=== PATIENT | female | born 1945 | race Caucasian/White ===

== ENCOUNTER → 2024-12-22 14:00 | Outpatient (CLI) | payer MEDICARE, OTHER, SELFPAY ==
[2024-12-22 21:09] LABS: Influenza A - CEPHEID Flu A NEGATIVE (NEGATIVE); Influenza B - CEPHEID Flu B NEGATIVE (NEGATIVE); Respiratory Syncytial Virus Negative (Negative)
[2024-12-22 21:11] LABS: COVID-19 CEPHEID 4-PLEX PCR Negative (Negative)
== END ==
PROVIDERS: PCP Family Medicine; Visit Provider Physician Assistant
DX: R05.1 Acute cough (principal)
CPT/HCPCS: 0241U

== ENCOUNTER → 2025-01-16 12:21 | Outpatient (CLI) | payer MEDICARE, OTHER, SELFPAY ==
--- NOTE | 2025-01-16 12:23 | DI.ECHO.S_ITS ---
[facility] : : [address] : : [place] : : [id number] : : Phone: [phone] Echocardiogram Report + + :Name: MAGALY MARLOW Study Date: 01/16/2025 Height: 65 in : :[facility] ReadingLocation: Weight: 201 lb : : Gender: Female BSA: 2.0 m2 : :: 1945 Age: 79 yrs BP: 142/86 mmHg: :Reason For Study: Cardiomyopathy : :Ordering Physician: NAZ, : :SILVINA Performed By: Conchita Post : :Referring: SILVINA HER : + + Interpretation Summary 1) Normal left ventricular thickness and size with low normal systolic function (EF 50-55%). There is a significant dyssynchronous contraction pattern, consistent with a conduction abnormality. 2) Normal right ventricular size and function. 3) No significant valvular abnormalities. 4) No prior Echo available for comparison. Procedure: A two-dimensional transthoracic echocardiogram with color flow and Doppler was performed. The study quality was technically adequate. There is no prior echocardiogram noted for this patient. The patient was in sinus rhythm with heart rates between 56-71 bpm during the exam. Left Ventricle: The left ventricle is normal in size and wall thickness. A false chord is noted (normal variant). The ejection fraction is estimated to be 50-55%. There is a significant dyssynchronous contraction pattern, consistent with a conduction abnormality. Diastolic function could not be accurately assessed due to contradictory data. Right Ventricle: The right ventricle is normal in size and function. Atria: Both atria are normal in size. There is no Doppler evidence for an interatrial shunt. Mitral Valve: There is mild mitral annular calcification. The mitral valve leaflets are mildly calcified. There is no mitral valve stenosis. There is trace mitral regurgitation. Aortic Valve: The aortic valve is trileaflet. The aortic valve opens well. The aortic valve is slightly calcified. There is no aortic valve stenosis. No aortic regurgitation is present. Tricuspid Valve: The tricuspid valve leaflets are thin and pliable. There is a trace or physiologic amount of tricuspid regurgitation. The right ventricular systolic pressure is estimated to be at least 21 mmHg based on an estimated right atrial pressure of 3 mm Hg. Pulmonic Valve: The pulmonic valve is not well seen, but is grossly normal. There is a trace or physiologic amount of pulmonic regurgitation. Great Vessels: The aortic root is normal size. Moderate atherosclerotic plaque(s) in the aortic arch. The ascending aorta is normal in size. The aortic arch is normal in size. The pulmonary artery is normal size. The IVC is of normal diameter and collapses greater than 50% with a sniff. This suggests a low right atrial pressure of 3 mm Hg. MMode/2D Measurements & Calculations LVIDd: 5.3 cm LVOT diam: 2.1 cm LVIDs: 3.9 cm Ao root diam: 3.4 cm FS: 25.9 % asc Aorta Diam: 3.4 cm EPSS: 1.7 cm Ao Arch Diam (Prox Trans): 2.0 cm IVSd: 0.69 cm LVPWd: 0.96 cm LV gore. diameter/BSA (cm/m^2): 2.7 LV sys. diameter/BSA (cm/m^2): 2.0 LA A2 area: 19.8 cm2 RA long axis: 5.1 cm LA A4 area: 15.7 cm2 RA area: 15.5 cm2 LA length (vol): 4.7 cm RA vol: 39.7 ml LA vol: 55.4 ml RA : 20.0 ml/m2 LA vol index: 27.9 ml/m2 IVC diam: 1.3 cm TAPSE: 2.2 cm Doppler Measurements & Calculations Ao V2 max: 125.6 cm/sec LVOT Max Devante: 79.4 cm/sec Ao V2 mean: 88.2 cm/sec LV V1 max P.5 mmHg Ao max P.3 mmHg LV V1 VTI: 18.8 cm Ao mean P.4 mmHg VITOR(I,D): 2.3 cm2 Ao V2 VTI: 29.5 cm VITOR(V,D): 2.2 cm2 sev ratio: 0.64 VITOR indexed to BSA (cm^2/m^2): 1.1 MV E max devante: 61.0 cm/sec TR max devante: 212.8 cm/sec MV A max devante: 83.5 cm/sec TR max P.1 mmHg MV E/A: 0.73 PA V2 max: 70.4 cm/sec Med Peak E' Devante: 3.6 cm/sec PA V2 mean: 46.4 cm/sec E/E' med: 17.2 PA mean P.96 mmHg Lat Peak E' Devante: 4.1 cm/sec PA pr(Accel): 39.6 mmHg E/E' lat: 14.9 E/e' average: 16.0 MV dec time: 0.33 sec MVA(VTI): 2.2 cm2 MV V2 mean: 56.2 cm/sec SV(LVOT): 66.6 ml MV mean P.4 mmHg MV V2 VTI: 30.0 cm Reading Physician:05:49 PM
== END ==
PROVIDERS: PCP Family Medicine; Referring Provider Internal Medicine Cardiovascular Disease; Visit Provider Internal Medicine Cardiovascular Disease
DX: I34.81 Nonrheumatic mitral (valve) annulus calcification (principal); I70.0 Atherosclerosis of aorta; I42.9 Cardiomyopathy, unspecified
CPT/HCPCS: 93306

== ENCOUNTER → 2025-03-08 11:44 | Outpatient (CLI) | payer MEDICARE, OTHER, SELFPAY ==
[2025-03-08 12:45] LABS: Add Manual Diff / Slide Review NO; Basophils Absolute Auto 100 /uL (0-100); Basophils Percent Auto 0.9 % (0-2); Eosinophils Absolute Auto 500 /uL (0-450); Eosinophils Percent Auto 5.4 % (2-4); Hematocrit 42.1 % (36-46); Hemoglobin 14.3 g/dL (12.0-16.0); Lymphocytes Absolute Auto 3200 /uL (1100-4500); Lymphocytes Percent Auto 37.3 % (25-40); Mean Corpuscular HGB Conc 34.1 % (30-36); Mean Corpuscular Hemoglobin 32.7 PG (26-34); Mean Corpuscular Volume 95.9 fL (80-100); Monocytes Absolute Auto 600 /uL (0-900); Monocytes Percent Auto 6.6 % (3-14); Neutrophils Absolute Auto 4300 /uL (1500-7000); Neutrophils Percent Auto 49.8 % (50-75); Platelet Count 345 X10^3/uL (150-400); Red Blood Cell Count 4.39 X10^6/uL (4.0-5.2); Red Cell Distribution Width 14.8 % (11.6-14.8); White Blood Cell Count 8.6 X10^3/uL (4.5-11.0)
[2025-03-08 13:12] LABS: Alanine Aminotransferase 15 IU/L (<35); Albumin 4.5 g/dL (3.5-5.0); Alkaline Phosphatase 65 U/L (38-126); Aspartate Aminotransferase 22 IU/L (14-36); BUN Creatinine Ratio 24.2 (6-22); Bilirubin Total 0.5 mg/dL (0.2-1.3); Blood Urea Nitrogen 15 mg/dL (7-17); Calcium 9.7 mg/dL (8.4-10.2); Carbon Dioxide 27 mmol/L (22-32); Chloride 96 mmol/L (98-107); Cholesterol 213 mg/dL (140-199); Estimated Glomerular Filt Rate > 60 mL/min (>60); Globulin 2.3 g/dL (1.7-4.1); Glucose 96 mg/dL (70-99); HDL Cholesterol 68 mg/dL (40-60); HEMOLYSIS < 15 (0-50); LDL Cholesterol Calculated 120 mg/dL (<100); Potassium 4.6 mmol/L (3.4-5.1); Sodium 130 mmol/L (137-145); Total Protein 6.8 g/dL (6.3-8.2); Triglycerides 126 mg/dL (35-150)
== END ==
PROVIDERS: PCP Family Medicine; Referring Provider Family Medicine; Visit Provider Family Medicine
DX: I10 Essential (primary) hypertension (principal); I42.9 Cardiomyopathy, unspecified; E78.5 Hyperlipidemia, unspecified
CPT/HCPCS: 36415; 80053; 80061; 85025

== ENCOUNTER → 2025-03-28 09:13 | Outpatient (CLI) | payer MEDICARE, OTHER, SELFPAY ==
[2025-03-28 10:49] LABS: Cortisol AM (Before 10AM) 10.7 ug/dL (4.46-22.7)
[2025-03-29 13:14] LABS: Osmolality Urine 420 mOsmol/kg (.)
[2025-03-29 13:14] LABS: Osmolality, Serum 282 mOsmol/kg (280-301)
== END ==
PROVIDERS: PCP Family Medicine; Referring Provider Family Medicine; Visit Provider Family Medicine
DX: E27.49 Other adrenocortical insufficiency (principal); E87.1 Hypo-osmolality and hyponatremia
CPT/HCPCS: 36415; 82533; 83930; 83935

== ENCOUNTER → 2025-06-23 10:34 | Outpatient (CLI) | payer MEDICARE, OTHER, SELFPAY ==
[2025-06-23 11:49] LABS: Free T3, Triiodothyronine Free 4.51 pg/mL (2.77-5.27); Free T4, Direct Thyroxine 1.07 ng/dL (0.78-2.19)
[2025-06-23 12:03] LABS: Thyroid Stimulating Hormone 1.98 uIU/mL (0.47-4.68)
== END ==
PROVIDERS: PCP Family Medicine; Referring Provider Family Medicine; Visit Provider Family Medicine
DX: E04.9 Nontoxic goiter, unspecified (principal); Z86.39 Personal history of other endocrine, nutritional and metabolic disease; Z83.49 Family history of other endocrine, nutritional and metabolic diseases
CPT/HCPCS: 36415; 84439; 84443; 84481

== ENCOUNTER → 2025-07-05 | Outpatient (CLI) | payer MEDICARE, OTHER, SELFPAY ==
--- NOTE | 2025-07-05 11:45 | DI.US.S_ITS ---
PROCEDURE: US THYROID INDICATIONS: F/U CHEST CT TECHNIQUE: Real-time scanning was performed of the thyroid gland, with image documentation. COMPARISON: None. FINDINGS: Thyroid: Right lobe measures 5.5 x 2.1 x 1.3 cm. Left lobe measures 7.2 x 3.5 x 5.5 cm. Isthmus is 2.6 mm thick. Echotexture is homogeneous. Nodule number: 1 Location: Left lobe Size: 6.6 x 3.8 x 5.1 cm. Composition: Mixed Echogenicity: Isoechoic Shape: wider than tall. Margins: Smooth Echogenic foci: Peripheral calcific Total points: 4 ACR TI-RADS category: 4 Nodule number: 2 Location: Right superior Size: 2.6 x 1.4 x 1.6 cm. Composition: Solid Echogenicity: Isoechoic Shape: wider than tall. Margins: Smooth Echogenic foci: Punctuate Total points: 6 ACR TI-RADS category: 4 IMPRESSION: Recommend FNAs of left thyroid lobe (nodule 1) and right superior (nodule 2), if not previously biopsied per recommended TI-RADS scoring. ACR TI-RADS definitions and recommendations: TI-RADS 1 (benign): 0 points. FNA not needed. TI-RADS 2 (not suspicious): 2 points. FNA not needed. TI-RADS 3: 3 points. * FNA if 2.5 cm or larger, follow up if 1.5 cm or larger (at 1, 3, and 5 years). TI-RADS 4: 4-6 points. * FNA if 1.5 cm or larger, follow up if 1 cm or larger (at 1, 2, 3, and 5 years). TI-RADS 5: 7 points or more. * FNA if 1 cm or larger, follow up if 0.5 cm or larger (every year for 5 years). Dictated by: Brittnee Cohn RRRois Interpreted: Kirby Moulton MD on 07/06/2025 at 10:17 Transcribed by: HIRAL on 07/06/2025 at 10:52 Approved by: Kirby Moulton M.D. on 07/07/2025 at 8:44
== END ==
LOC: US 11:45
PROVIDERS: PCP Family Medicine; Referring Provider Family Medicine; Visit Provider Family Medicine
DX: E04.2 Nontoxic multinodular goiter (principal); Z86.39 Personal history of other endocrine, nutritional and metabolic disease; Z87.81 Personal history of (healed) traumatic fracture; Z83.49 Family history of other endocrine, nutritional and metabolic diseases
CPT/HCPCS: 76536